=== PATIENT | male | born 1980 | race Caucasian/White ===

== ENCOUNTER 2024-06-30 14:55 | Outpatient (REF) | payer OTHER, SELFPAY ==
[2024-06-30 16:00] LABS: Alanine Aminotransferase 86 U/L (0-40); Aspartate Amino Transferase 41 U/L (5-37); Estimated Glomerular Filt Rate > 60; Uric Acid 5.4 mg/dL (3.4-7.0)
--- OUTSIDE RECORDS SUMMARY | 2024-06-30 16:39 | XMS_ITS | Continuity of Care Document ---
Author Organization [facility] Address [address] [place] [address]- Care Team Providers Care Staff Internist Office Based Only Name Role Phone Cyril COLON, Clint Primary Care Physician Encounter [facility] [place] Date(s): 05/04/24 - 06/03/24 [facility] [address] [place] [phone]- Encounter Type: Triage Allergies, Adverse Reactions, Alerts No Known Allergies Immunizations Given and Recorded Vaccine Date Status Refusal Reason tetanus-diphtheria toxoids (Td) 04/16/21 Given tetanus-diphtheria toxoids (Td) 1 06/20/10 Recorde d SARS-CoV-2 (COVID-19) mRNA-1273 vaccine 04/02/21 R ecorded SARS-CoV-2 (COVID-19) mRNA-1273 vaccine 08/05/20 R ecorded SARS-CoV-2 (COVID-19) mRNA-1273 vaccine 07/08/20 R ecorded pneumococcal 23-valent vaccine 11/05/03 Recorded 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 allopurinol 100 mg oral tablet 2, tablet, By Mouth, Daily, # 180 tablet, Refills 1, Maintenance, 12/19/23 4:19:00 PM EDT, Route to Pharmacy Electronically, [facility], 175.2, cm, 09/21/23 15:11:00 EDT, Height Start Date: 12/19/23 Status: Ordered Quantity: 180.0 Unit: tablet Repeat number: 1 amLODIPine 5 mg oral tablet See Instructions, TAKE 1 TABLET DAILY OFFICE VISIT NEEDED, # 90 tablet, 1 Refills, Maintenance, 04/17/24 1:18:00 PM EST, [facility], 175.2, cm, 01/26/24 14:29:00 EDT, Height, 134.3, kg, 12/24/23 15:11:00 EDT, Dry Weight Start Date: 04/17/24 Status: Ordered Quantity: 90.0 Unit: tablet Repeat number: 1 chlorthalidone 25 mg oral tablet 1, tablet, By Mouth, Daily, # 90 tablet, Refills 1, Maintenance, 04/17/24 1:18:00 PM EST, Route to Pharmacy Electronically, [facility], 175.2, cm, 01/26/24 14:29:00 EDT, Height, 134.3, kg, 12/24/23 15:11:00 EDT, Dry Weight Start Date: 04/17/24 Status: Ordered Quantity: 90.0 Unit: tablet Repeat number: 1 ciclopirox 8% topical solution 1 application, Topically, Daily, # 3.3 mL, 0 Refills, Maintenance, 04/14/22 4:53:00 PM EST, Solution, [id number], Partial fill upon patient request if the prescription is for a schedule II opioid drug., 1 application Topically Daily, 175.2, cm, 04/14/22 16:01:00 EST, Height, 123.5,kg, 01/14/21 11:20:00 EDT, Dry Weight Start Date: 04/14/22 Status: Ordered Quantity: 3.3 Unit: mL Repeat number: 1 fluticasone 50 mcg/inh nasal spray 2 sprays = 100 mcg, Nares, Both, Daily, # 16 Gm, 1 Refills, Maintenance, 01/23/24 3:34:00 PM EDT, [facility], Partial fill upon patient request if the prescription is for a schedule II opioid drug., 2 sprays Nares, Both Daily,x30 days, 175.2, cm, 12/24/23 15:20:00 EDT, Height,134.3, kg, 12/24/23 15:11:00 EDT, Dry Weight Start Date: 01/23/24 Stop Date: 03/23/24 Status: Ordered Quantity: 16.0 Unit: g Repeat number: 2 Problem List Condition Confirmation Course Effective Dates Status H ealth Status Informant Aphasia as late effect of cerebrovascular disease Confirmed Active Chronic pain Confirmed Active Dyslipidemia Confirmed Active Essential hypertension Confirmed Active Folliculitis decalvans Confirmed Active Headache Confirmed Active Hyperacusis Confirmed Active Obstructive sleep apnea syndrome Confirmed Active Pain in right foot Confirmed Active Severe obesity Confirmed Active Social History Social History Type Response Smoking Status Never (less than 100 in lifetime) entered on: 12/15/19 Sex Sex Representation Male (finding) Patient Care team information Care Team Personnel Name: Clint Nam NP Position: S PCO Associate Professional Member Role: PCP Address: [address] [place] [address] Telecom: Care Team Related Persons Name: FABIO MENDOZA Insurance Providers Guarantor name: DALTON MENDOZA [facility] Information #: 1 Payer: [employer] HMO Member Number: NA Policy Number: NA Group Number: NA
--- OUTSIDE RECORDS SUMMARY | 2024-06-30 16:39 | XMS_ITS | Continuity of Care Document ---
Author Organization [facility] Address [address] [place] [address]- Care Team Providers Care Armor Reconnaissance Vehicle Driver Name Role Phone Clint Nam NP Primary Care Physician [phone] Encounter [facility] Date(s): 05/23/24 - 06/22/24 [facility] [address] [place] [phone] Attending Physician: Leatha Tracy Admitting Physician: AdmtrLeatha Referring Physician: Admtr ArIldefonso Encounter Type: Triage Allergies, Adverse Reactions, Alerts No Known Allergies Immunizations Given and Recorded Vaccine Date Status Refusal Reason tetanus-diphtheria toxoids (Td) 04/16/21 Given tetanus-diphtheria toxoids (Td) 1 06/20/10 Recorde d SARS-CoV-2 (COVID-19) mRNA-1273 vaccine 04/02/21 R ecorded SARS-CoV-2 (COVID-19) mRNA-1273 vaccine 08/05/20 R ecorded SARS-CoV-2 (COVID-19) mRNA-1273 vaccine 07/08/20 R ecorded pneumococcal 23-valent vaccine 11/05/03 Recorded 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 allopurinol 100 mg oral tablet 2, [...] 1 Refills, Maintenance, 04/17/24 1:18:00 PM EST, [facility], 175.2, cm, 01/26/24 14:29:00 EDT, Height, 134.3, kg, 12/24/23 15:11:00 EDT, Dry Weight Start Date: 04/17/24 Status: Ordered Quantity: 90.0 Unit: tablet Repeat number: 1 chlorthalidone 25 mg oral tablet 1, tablet, By Mouth, Daily, # 90 tablet, Refills 1, Maintenance, 04/17/24 1:18:00 PM EST, Route to Pharmacy Electronically, [facility], 175.2, cm, 01/26/24 14:29:00 EDT, Height, 134.3, kg, 12/24/23 15:11:00 EDT, Dry Weight Start Date: 04/17/24 Status: Ordered Quantity: 90.0 Unit: tablet Repeat number: 1 ciclopirox 8% topical solution 1 application, Topically, Daily, # 3.3 mL, 0 Refills, Maintenance, 04/14/22 4:53:00 PM EST, Solution, [facility][id number], Partial fill upon patient request if the [...] 3:34:00 PM EDT, [facility], Partial fill upon patient request if [...] on: 12/15/19 Sex Sex Representation Male (finding) Cardiology Consult note * Event Display: Consult Note Cardiology Authored Date: * Event Display: Consult Note Cardiology Authored Date: Patient Care team information Care Team Personnel Name: Clint Nam NP Position: [facility] PCO Associate Professional Member Role: PCP Address: [address] [place] [address] Telecom: Care Team Related Persons Name: FABIO MENDOZA Insurance Providers Guarantor name: DALTON PERDOMOTAMIA [facility] Plan Information #: 1 Payer: [employer]IV[employer] HMO Member Number: NA Policy Number: NA Group Number: NA
--- OUTSIDE RECORDS SUMMARY | 2024-06-30 16:39 | XMS_ITS | Continuity of Care Document ---
Author Organization [facility] Address [address] [place] [address]- Care Team Providers Care Office Machine Inspector Name Role Phone Cyril COLON, Clint Primary Care Physician [phone] [place] [facility] [place](s): 05/16/24 - 06/15/24 [facility] [address] [place] [phone]- Encounter Type: Triage Allergies, Adverse Reactions, Alerts No Known Allergies Immunizations Given and Recorded Vaccine Date Status Refusal Reason tetanus-diphtheria toxoids (Td) 04/16/21 Given tetanus-diphtheria toxoids (Td) 1 06/20/10 Recorde d SARS-CoV-2 (COVID-19) mRNA-1273 vaccine 04/02/21 R ecorded SARS-CoV-2 (COVID-19) mRNA-1273 vaccine 08/05/20 R ecorded SARS-CoV-2 (COVID-19) mRNA-1273 vaccine 07/08/20 R ecorded pneumococcal 23-valent vaccine 11/05/03 Recorded 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[employer] 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 allopurinol 100 mg oral tablet 2, [...] 1:18:00 PM EST, Route to Pharmacy Electronically, [facility], 175.2, cm, 01/26/24 14:29:00 EDT, Height, 134.3, kg, 12/24/23 15:11:00 EDT, Dry Weight Start Date: 04/17/24 Status: Ordered Quantity: 90.0 Unit: tablet Repeat number: 1 ciclopirox 8% topical solution 1 application, Topically, Daily, # 3.3 mL, 0 Refills, Maintenance, 04/14/22 4:53:00 PM EST, Solution, [facility] #[id number], Partial fill upon patient request if the [...] 1 Refills, Maintenance, 01/23/24 3:34:00 PM EDT, [facility], Partial fill upon patient request if [...] PCO Associate Professional Member Role: PCP Address: [address] [place] [address] Telecom: Care Team Related Persons Name: FABIO MENDOZA Insurance Providers Guarantor name: DALTON MENDOZA [facility] Information #: 1 Payer: [employer]IV[employer] HMO Member Number: NA Policy Number: NA Group Number: NA
--- OUTSIDE RECORDS SUMMARY | 2024-06-30 16:39 | XMS_ITS | Continuity of Care Document ---
Author Organization [facility] Address [address] [place] [address]- Care Team Providers Care Assembler Seat Name Role Phone Cyril COLON, Clint Primary Care Physician [phone] Encounter [facility] Date(s): 05/05/24 - 06/04/24 [facility] [address] [place] [phone]- Encounter Type: Triage Allergies, Adverse Reactions, Alerts No Known Allergies Immunizations Given and Recorded Vaccine Date Status Refusal Reason tetanus-diphtheria toxoids (Td) 04/16/21 Given tetanus-diphtheria toxoids (Td) 1 06/20/10 Recorde d SARS-CoV-2 (COVID-19) mRNA-1273 vaccine 04/02/21 R ecorded SARS-CoV-2 (COVID-19) mRNA-1273 vaccine 08/05/20 R ecorded SARS-CoV-2 (COVID-19) mRNA-1273 vaccine 07/08/20 R ecorded pneumococcal 23-valent vaccine 11/05/03 Recorded 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[email or web address] 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 allopurinol 100 mg oral tablet 2, [...] 1:18:00 PM EST, Route to Pharmacy Electronically, [facility], 175.2, cm, 01/26/24 14:29:00 EDT, Height, 134.3, kg, 12/24/23 15:11:00 EDT, Dry Weight Start Date: 04/17/24 Status: Ordered Quantity: 90.0 Unit: tablet Repeat number: 1 ciclopirox 8% topical solution 1 application, Topically, Daily, # 3.3 mL, 0 Refills, Maintenance, 04/14/22 4:53:00 PM EST, Solution, [facility] #[id number], Partial fill upon patient request if the [...] Refills, Maintenance, 01/23/24 3:34:00 PM EDT, [facility], Partial fill upon patient request [...] PCO Associate Professional Member Role: PCP Address: [address] [place] [address] Telecom: Care Team Related Persons Name: FABIO MENDOZA Insurance Providers Guarantor name: DALTON MENDOZA [facility] Information #: 1 Payer: [employer]IVAS HMO Member Number: NA Policy Number: NA Group Number: NA
--- OUTSIDE RECORDS SUMMARY | 2024-06-30 16:39 | XMS_ITS | Continuity of Care Document ---
Author Organization [facility] Address [address] [place] [address]- Care Team Providers Care Cotton Grower Name Role Phone Cyril COLON, Clint Primary Care Physician [phone] [place] [facility] Date(s): 05/09/24 - 06/18/24 [facility] [address] [place] [phone]- Attending Physician: Rafael Delatorre MD Admitting Physician: Rafael Delatorre MD Encounter Type: Pre-OutPatient One Time Allergies, Adverse Reactions, Alerts No Known Allergies Immunizations Given and Recorded Vaccine Date Status Refusal Reason tetanus-diphtheria toxoids (Td) 04/16/21 Given tetanus-diphtheria toxoids (Td) 1 06/20/10 Recorde d SARS-CoV-2 (COVID-19) mRNA-1273 vaccine 04/02/21 R ecorded SARS-CoV-2 (COVID-19) mRNA-1273 vaccine 08/05/20 R ecorded SARS-CoV-2 (COVID-19) mRNA-1273 vaccine 07/08/20 R ecorded pneumococcal 23-valent vaccine 11/05/03 Recorded 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 allopurinol 100 mg oral tablet [...] 1 Refills, Maintenance, 04/17/24 1:18:00 PM EST, [facility], 175.2, cm, 01/26/24 14:29:00 EDT, Height, 134.3, kg, 12/24/23 15:11:00 EDT, Dry Weight Start Date: 04/17/24 Status: Ordered Quantity: 90.0 Unit: tablet Repeat number: 1 chlorthalidone 25 mg oral tablet 1, tablet, By Mouth, Daily, # 90 tablet, Refills 1, Maintenance, 04/17/24 1:18:00 PM EST, Route to Pharmacy Electronically, [facility], 175.2, cm, 01/26/24 14:29:00 EDT, Height, 134.3, kg, 12/24/23 15:11:00 EDT, Dry Weight Start Date: 04/17/24 Status: Ordered Quantity: 90.0 Unit: tablet Repeat number: 1 ciclopirox 8% topical solution 1 application, Topically, Daily, # 3.3 mL, 0 Refills, Maintenance, 04/14/22 4:53:00 PM EST, Solution, [facility] #[id number], Partial fill upon patient request if the [...] 3:34:00 PM EDT, [facility], Partial fill upon patient [...] Team Personnel Name: Clint Nam NP Position: [facility] PCO Associate Professional Member Role: PCP Address: [address] [place] [address] Telecom: Care Team Related Persons Name: FABIO MENDOZA Insurance Providers Guarantor name: DALTON MENDOZA Health Plan Information #: 1 Payer: [facility] Member Number: [id number] Policy Number: NA Group Number: [id number] Health Plan Information #: 2 Payer: [facility] Member Number: [id number] Policy Number: NA Group Number: NA
== END 2024-06-30 14:56 | disposition home or self-care (01) ==
LOC: HO.LAB 14:55
PROVIDERS: PCP Registered Nurse Rehabilitation; Visit Provider Internal Medicine Rheumatology
DX: M10.9 Gout, unspecified (principal); Z79.899 Other long term (current) drug therapy
CPT/HCPCS: 36415; 82565; 84450; 84460; 84550

== ENCOUNTER 2024-08-08 12:37 | Outpatient (REF) | payer OTHER, SELFPAY ==
--- NOTE | ~2024-08-08 | US_ITS ---
CLINICAL HISTORY: R74.01 - Elevation of levels of liver transaminase levels US abdomen limited Comparison: None Findings: Fatty infiltration of the liver with fatty sparing. No significant focal abnormality. Right lobe 18.3 cm length. Main portal vein patent with antegrade flow. Visualized pancreas unremarkable. 4 x 6 mm medial gallbladder wall polyp. 3 mm polyp near gallbladder neck. No gallstones or wall thickening noted. Common duct 4.0 mm diameter. No ultrasonographic Hernandez sign. Right kidney normal, 11.6 cm in length. Impression: Small gallbladder polyps Hepatomegaly with fatty infiltration of the liver This document has been electronically signed by: Tone Benton MD on 08/09/2024 20:24:46
== END 2024-08-08 12:38 | disposition home or self-care (01) ==
LOC: HO.US 12:37
PROVIDERS: PCP Registered Nurse Rehabilitation; Visit Provider Internal Medicine Rheumatology
DX: R74.01 Elevation of levels of liver transaminase levels (principal)
CPT/HCPCS: 76705

== ENCOUNTER → 2024-08-08 12:39 | Outpatient (BNV) | payer OTHER, SELFPAY | PROVIDERS: PCP Registered Nurse Rehabilitation; Visit Provider Radiology Diagnostic Radiology | DX: R74.01 Elevation of levels of liver transaminase levels (principal) | CPT/HCPCS: 76705 ==

== ENCOUNTER 2024-12-13 08:30 | Outpatient (AMB) | payer OTHER, SELFPAY ==
[2024-12-13 08:36] VITALS: BP 130/80; PULSE 83; O2SAT 93; BMI 43.3
--- NOTE | 2024-12-13 08:36 | MHC.OFFVIS ---
Vital Signs 12/13/24 08:36 Height 5 ft 9 in Weight 292 lb 15.909 oz BMI 43.3 BP 130/80 Blood Pressure Location Lt brachial Position Sitting Pulse 83 Pulse Source Pulse Oximeter Pulse Oximetry (%) 93 Oxygen Delivery Method Room Air Intake Visit Reasons: Gout/MD approved Intake Note: Patient presents today for a gout follow up. Accompanied by: Self / Same As Patient Allergies No Known Allergies Allergy (Verified 12/13/24 08:36) HPI HPI Gout/MD approved: Details: No gout flares. Doing well. [facility] Medical History Lateral epicondylitis Physical Exam Vital Signs: Last Vital Signs Pulse 83 12/13/24 08:36 BP 130/80 12/13/24 08:36 Pulse Ox 93 12/13/24 08:36 Oxygen Delivery Method Room Air 12/13/24 08:36 BMI result Body Mass Index 43.3 Const Other: General: Comfortable CVS: RRR Respiratory: clear to auscultation bilaterally. Good respiratory effort Skin: No lesions seen MSK: No tender joints. No synovitis. No tophus. Shoulder abduction 160 degrees bilateral with good internal and external rotation. Normal range of motion of hips. Knee flexion 90 degrees bilateral. Assessment & Plan Assessment & Plan (1) Gout: Comment: Controlled on lower dose of allopurinol 700 mg daily. Allopurinol dose was reduced due to worsening transaminitis on labs, which has improved with lower dose on September 2024 labs. Uric acid is 5.7, at goal 06/2024. Rheumatology history: He has a diagnosis of presumed gout previously controlled on allopurinol 800 mg daily. He has background hepatic steatosis contributing to mild transaminitis. LFTs worsened, which responded to lowering dose of allopurinol from 800 mg daily to 700 mg daily 09/2024 labs. US 07/2024 reveal hepatic steotosis. Code(s): M10.9 - Gout, unspecified Category: Medical Qualifiers: Gout site: unspecified site Gout etiology: idiopathic Plan: Labs for disease and drug monitoring given to patient to have done local to his home in 4 months. Continue allopurinol 700 mg daily Encouraged weight loss. We discussed importance of healthy eating. Return to clinic in 1 year or sooner if needed (2) Other long-term (current) drug therapy: Code(s): Z79.899 - Other automatic profile sander operator (current) drug therapy Category: Medical Plan: See above (3) Transaminitis: Code(s): R74.01 - Elevation of levels of liver transaminase levels Category: Medical Plan: See above Orders: Orders Alanine Aminotransferase Today M10.9 - Gout, unspecified, R74.01 - Elevation of levels of liver transaminase levels, Z79.899 - Other automatic profile sander operator (current) drug therapy Aspartate Amino Transferase Today M10.9 - Gout, unspecified, R74.01 - Elevation of levels of liver transaminase levels, Z79.899 - Other automatic profile sander operator (current) drug therapy Uric Acid 4 Months M10.9 - Gout, unspecified, R74.01 - Elevation of levels of liver transaminase levels, Z79.899 - Other automatic profile sander operator (current) drug therapy Creatinine Today M10.9 - Gout, unspecified, R74.01 - Elevation of levels of liver transaminase levels, Z79.899 - Other automatic profile sander operator (current) drug therapy Medications: Refilled allopurinol 100 mg PO DAILY 30 tabs 5RF allopurinol 600 mg (2 x 300 mg) PO DAILY 60 tabs 5RF Coding Level of Care Code Est Pt Level 4 (79884) Complex EM visit Add On G2211 Diagnoses Gout M10.9 Gout site: unspecified site Gout etiology: idiopathic Other long-term (current) drug therapy Z79.899 Transaminitis R74.01 Time Spent (min) 20
--- OUTSIDE RECORDS SUMMARY | 2024-12-13 09:13 | XMS_ITS | Clinical Summary ---
Author Organization [facility] Address [address] [place], [place] [id number] Phone Care Team Providers Care Equipment Processor Name Role Phone Maritza Giordano NP Primary Care Provide r Allergies No known active allergies Medications allopurinol (ZYLOPRIM) 100 MG tablet Take 300 mg by mouth daily. 800 mg total daily Active amLODIPine (NORVASC) 5 MG tablet 08/09/2021 Active chlorthalidone (HYGROTON) 25 MG tablet 08/10/2021 Active Active Problems Problem Noted Date Diagnosed Date BAM (obstructive sleep apnea) 08/11/2021 Secondary hypertension 08/11/2021 CPAP (continuous positive airway pressure) depen calvin 08/11/2021 Social History Tobacco Use Types Packs/Day Years Used Date Smoking Tobacco: Former Cigarettes Q uit: 1992 Smokeless Tobacco: Never Tobacco Cessation:Counseling Given: Not Answered Alcohol Use Standard Drinks/Week Comments Not Currently 0 (1 standard drink = 0.6 oz pur e alcohol) Education Answer Date Recorded Are you interested in more education? Not on snow e 08/21/2022 Are you concerned about learning? Not on file 08/21/2022 No 08/21/2022 No 08/21/2022 Digital Access Answer Date Recorded No 09/19/2022 No 09/19/2022 Reliable internet access at home? Not on file 09/19/2022 Device with a working camera? Not on file Sex and Gender Information Value Date Recorded Sex Assigned at Not on file Legal Sex Male 9:37 AM EST Gender Identity Not on file Sexual Orientation Not on file Last Filed Vital Signs Vital Sign Reading Time Taken Comments Blood Pressure 120/80 08/14/2024 1:38 PM EDT Pulse 114 08/14/2024 1:38 PM EDT Temperature - - Respiratory Rate - - Oxygen Saturation 96% 08/14/2024 1:38 PM EDT Inhaled Oxygen Concentration - - Weight 130.2 kg (287 lb) 08/14/2024 1:38 PM EDT Height 175.3 cm (5' 9.02 ) 08/14/2024 1:38 PM ED T Body Mass Index 42.36 08/14/2024 1:38 PM EDT Plan of Treatment Upcoming Encounters Date Type Department Care Team (Late st Contact Info) Description 08/13/2025 11:40 AM EDT Office Visit [facility] [address], [address] [place], [place] [id number] Eugenio Kruse MD, [place] [address], [address] [place] [address] [email or web address] Maintenance Due Date Last Done Comments CREATININE LEVEL 1978 LIPID PANEL 1978 POTASSIUM LEVEL 1978 DEPRESSION SCREENING 1990 HEPATITIS C SCREENING 1996 HIV ONE-TIME SCREENING (18-6 5 YEARS) 1996 SCREENING FOR DIABETES 2013 COLOGUARD 07/15/2023 COLONOSCOPY 07/15/2023 COLORECTAL CANCER SCREENING 07/15/2023 FIT TEST 07/15/2023 FOBT 07/15/2023 SIGMOIDOSCOPY 07/15/2023 VIRTUAL COLONOSCOPY 07/15/2023 COVID-19 VACCINE (4 - 2023-2 5 season) 2023 04/02/2021, 08/05/2020, 07/08/2020 BLOOD PRESSURE 02/13/2025 08/14/2024 SMOKING Hx and SMOKELESS TOBACCO SCREENING 08/14/2025 08/14/2024 Adult Td,Tdap Booster 04/16/2031 04/16/2021 , 06/20/2010 PNEUMOCOCCAL VACCINES (0-49 years) Aged Out 11/05/2003 No longer eligible b ased on patient's age to complete this topic HEPATITIS A VACCINES Aged Out No long er eligible based on patient's age to complete this topic HIB VACCINES Aged Out No longer eligi ble based on patient's age to complete this topic MENINGOCOCCAL VACCINES (ACWY) Aged Out No longer eligible based on patient's age to complete this topic MENINGOCOCCAL VACCINES (B) Aged Out N o longer eligible based on patient's age to complete this topic Medical Devices Not on file Insurance HMO O HMO O O O HMO Care Teams Equipment Processor Relationship Specialty Start Date End Date Maritza Giordano NP [email or web address] PCP - General 08/11/21 Additional Source Comments The information contained in this document represents components of the legal health record. It is not the complete legal health record.[facility]
== END 2024-12-13 09:11 | disposition home or self-care (01) ==
LOC: HO.RHES 08:31
PROVIDERS: PCP Registered Nurse Rehabilitation; Visit Provider Internal Medicine Rheumatology
DX: M10.9 Gout, unspecified (principal); Z79.899 Other long term (current) drug therapy; R74.01 Elevation of levels of liver transaminase levels
CPT/HCPCS: 99214; G2211